=== PATIENT | male | born 1985 | race Caucasian/White ===

== ENCOUNTER 2024-07-26 14:50 | Emergency (ER) | payer OTHER ==
[~2024-07-26] VITALS: Ht 188 cm; Wt 97.5 kg
[2024-07-26 15:02] VITALS: BP 160/111; TEMP 98.3
[2024-07-26] MEDS: IV NS 0.9% 1,000 ML BAG IV ONE (15:30)
[2024-07-26 17:18] VITALS: O2SAT 98
== END 2024-07-26 17:19 | disposition home or self-care (01) ==
LOC: ER 14:55
DX: K22.2 Esophageal obstruction (principal); R11.2 Nausea with vomiting, unspecified; W44.F3XA Food entering into or through a natural orifice, initial encounter; Y93.89 Activity, other specified; Y92.89 Other specified places as the place of occurrence of the external cause; Y99.8 Other external cause status
CPT/HCPCS: 99283; 96360; J7030